=== PATIENT | female | born 1985 | race African-American/Black ===

== ENCOUNTER 2021-03-15 12:22 | Emergency (ER) | payer OTHER ==
[~2021-03-15] VITALS: Ht 160 cm; Wt 59.0 kg
[~2021-03-15 12:22] MED LIST: FLEXERIL PO; IBUPROFEN 600600 M1 PO; KEFLEX500 M1 PO; MEDROLDOSEPACK PO; NOHOMEMEDICATIONS; NORCO 5-325 TA1 EACH PO; ONDANSETRON HCL4 M2 PO; PHENERGAN 25 MG25 MG PO; PREDNISONE 20 M20 MG PO; SINUS & ALLERG1 EAC1 PO; VITAFOL-OB+DHA1 EACH PO; ZANTAC 150MG T150 MG PO; ZOFRAN ODT4 MG PO
[2021-03-15] MEDS ORDERED: XULANE PATCH1 EACH TOP (12:45)
[2021-03-15] MEDS ORDERED: FLEXERIL PO (15:38)
[2021-03-15 15:48] VITALS: BP 140/76
== END 2021-03-15 15:47 | disposition home or self-care (01) ==
LOC: ER 12:22
DX: S39.012A Strain of muscle, fascia and tendon of lower back, initial encounter (principal); F17.210 Nicotine dependence, cigarettes, uncomplicated; M54.16 Radiculopathy, lumbar region; M79.661 Pain in right lower leg; R07.89 Other chest pain; Z91.040 Latex allergy status; W20.8XXA Other cause of strike by thrown, projected or falling object, initial encounter; Y93.89 Activity, other specified; Y92.89 Other specified places as the place of occurrence of the external cause; Y99.8 Other external cause status